=== PATIENT | male | born 1980 | race Asian ===

== ENCOUNTER 2017-09-28 20:31 | Emergency (ER) | payer OTHER ==
[~2017-09-28] VITALS: Ht 188 cm; Wt 100.0 kg
[2017-09-28] MEDS ORDERED: SODIUM CHLORIDE 0.9% 1,000ML IVBOLUS ONE ×2 (21:00→22:30)
[2017-09-28] MEDS ORDERED: SODIUM CHLORIDE FLUSH 10ML SYR IVF ONE (21:00)
[2017-09-28] MEDS ORDERED: LORazepam 2 MG/ML, 1ML ONE (21:44)
[2017-09-28 21:52] LABS: HEMATOCRIT 46.8 % (39.2-51.8); HEMOGLOBIN 15.9 g/dL (13.7-18.0); WHITE BLOOD COUNT 8.2 x10^3/uL (3.4-10)
[2017-09-28 21:56] LABS: BLOOD UREA NITROGEN 18 mg/dL (7-18)
[2017-09-28] MEDS ORDERED: LORazepam 2 MG/ML, 1ML IVPush ONE ×2 (22:00→22:30)
[2017-09-28 22:02] LABS: IS PT STATUS REG ER OR PRE ER? YES
[2017-09-28] MEDS ORDERED: OMNIPAQUE 350 MG/ML, 100ML BOTTLE ONE (23:14)
[2017-09-28 23:51] VITALS: BP 168/84
== END 2017-09-29 00:03 | disposition home or self-care (01) ==
LOC: ED 23:59
DX: J02.8 Acute pharyngitis due to other specified organisms (principal); I10 Essential (primary) hypertension; F17.210 Nicotine dependence, cigarettes, uncomplicated
CPT/HCPCS: 36415; 71010; 71275; 80048; 84484; 85025; 85379; 93005; 96374; 99285; J2060; J7030; Q9967